=== PATIENT | female | born 1975 | race Caucasian/White ===

== ENCOUNTER 2022-09-19 17:45 | Emergency (ER) | payer OTHER, MEDICARE, MEDICAID | END 2022-09-19 20:16 | disposition home or self-care (01) | LOC: CSHERS 17:45 | DX: S80.211A Abrasion, right knee, initial encounter (principal); S80.212A Abrasion, left knee, initial encounter; S40.812A Abrasion of left upper arm, initial encounter; S40.811A Abrasion of right upper arm, initial encounter; V19.9XXA Pedal cyclist (driver) (passenger) injured in unspecified traffic accident, initial encounter | CPT/HCPCS: 71045 ==